=== PATIENT | female | born 1960 ===

== ENCOUNTER 2023-11-04 22:01 | Emergency (ER) | payer SELFPAY | END 2023-11-05 01:57 | disposition left against medical advice (07) | LOC: DL.ED 22:01 | DX: Z53.21 Procedure and treatment not carried out due to patient leaving prior to being seen by health care provider (principal) ==

== ENCOUNTER 2024-08-01 07:19 | Day surgery (SDC) | payer BC ==
[~2024-08-01 07:19] MED LIST: Propofol 200 MG/20 ML SDV ONE
[2024-08-01] MEDS ORDERED: Dextrose 5%-0.45% NaCl 1,000 ML IV ONE (07:20)
[2024-08-01] MEDS ORDERED: Lactated Ringers 1,000 ML IV ONE (07:20)
[2024-08-01] MEDS ORDERED: dexmedeTOMIDine HCl 200 MCG/2 ML SDV IV ONE (07:20)
[2024-08-01] MEDS ORDERED: Propofol 200 MG/20 ML SDV IV ONE (07:20)
[2024-08-01] MEDS ORDERED: Dextrose 5%-0.45% NaCl 1,000 ML IV SCH (07:30)
[2024-08-01] MEDS ORDERED: Propofol 200 MG/20 ML SDV ONE (07:40)
[2024-08-01] MEDS: Lactated Ringers 1,000 ML IV SCH (07:50)
== END 2024-08-01 09:57 | disposition home or self-care (01) ==
LOC: DL.ENDO 07:19
PROVIDERS: ATTEND Internal Medicine Gastroenterology
DX: Z12.11 Encounter for screening for malignant neoplasm of colon (principal); K57.30 Diverticulosis of large intestine without perforation or abscess without bleeding; F32.9 Major depressive disorder, single episode, unspecified
CPT/HCPCS: 45378; J2704; J7120; 00812